=== PATIENT | male | born 1995 | race Caucasian/White ===

== ENCOUNTER 2016-10-22 14:02 | Emergency (ER) | payer BC ==
[2016-10-22 14:55] VITALS: BP 117/70
[2016-10-22 15:15] LABS: CHLORIDE,CL 104 mmol/L (98-107); SODIUM,NA 142 mmol/L (136-145)
--- NOTE | 2016-10-22 23:29 | ER ---
Date of Service: 10/22/2016 SUBJECTIVE: Steven presents to the emergency room with complaints of loose stools for the past 4 days and states that he has had a total of 2 loose stools earlier today and approximately 4 loose stools yesterday and the day before. The patient states that he has felt bloated and has been nauseated but has not been vomiting. He states that during his loose stool, he had an episode of pedro bloody stool. He states that there was an area of blood approximately the size of a quarter on the bottom of the toilet. It was not mixed with the stool. He states that he is noticing increased discomfort when wiping as well and notices some pedro blood on the toilet paper. PAST MEDICAL HISTORY: None. MEDICATIONS: None. ALLERGIES: NKDA. REVIEW OF SYSTEMS: General: No fever or chills. HEENT: No sore throat, rhinorrhea, congestion. Respiratory: No shortness of breath. Cardiac: Denies any substernal chest pain. No jaw, arm, neck, or back pain. Gastrointestinal: Positive for crampy diffuse abdominal discomfort. Denies any localization. Has been nauseated, but has not been vomiting. Again, did experience an episode of arm pedro bloody stool this afternoon. PHYSICAL EXAMINATION: General: This is a 20-year-old male patient, in no acute distress. Vital Signs: Blood pressure is 117/70, pulse rate 86, temperature is 36.8, respiratory rate 16. Skin: Warm, pink, and dry. HEENT: Head is normocephalic, atraumatic. Eyes, PERRLA. Extraocular movements are intact. Mouth, oral mucosa is moist. Lungs: Clear to auscultation. Heart: Regular rate and rhythm. Abdomen: Soft, nontender. There is no hepatosplenomegaly noted. There is no masses noted. : He does have some small excoriations and a small anal fissure to his anus. No external hemorrhoids noted. The area is quite tender to the touch. Extremities: Without edema. Neurologic: He is alert and oriented, answers all questions appropriately. His speech is fluent. His gait is within normal limits. LABORATORY DATA: WBCs 4.0, hemoglobin is 15.1, platelets are 189. Coags; PT is 10.8, INR is 1.0. Chemistry; comprehensive metabolic panel was obtained, was all noted to be within normal limits. ASSESSMENT: 1. Gastroenteritis. 2. Anal fissure. PLAN: The patient will be discharged. Advised to start Imodium 1 tablet after every loose stool for a total of 4 loose stools per day. Drink plenty of fluids. Liquid diet for the next 24 hours. Follow up in the clinic or ER in the next 7 to 10 days if not gradually improving. Again, the patient was advised the illnesses is likely of viral etiology and this has caused anal fissure to bleed. All questions were answered. MWK: 10/22/2016 15:45:09 MODL: 10/22/2016 23:21:35 /[id number]
== END 2016-10-22 15:45 | disposition home or self-care (01) ==
LOC: VM.ED 14:02
DX: K52.9 Noninfective gastroenteritis and colitis, unspecified (principal); K60.2 Anal fissure, unspecified
CPT/HCPCS: 36415; 74020; 80053; 85025; 85610; 99283